=== PATIENT | female | born 1960 ===

== ENCOUNTER 2023-09-27 11:31 | Day surgery (SDC) | payer BC ==
[~2023-09-27 11:31] MED LIST: Albuterol 0.083% 2.5 MG/3 ML Neb Soln NEB PRN; HYDROmorphone 1 MG/ML Syringe IVPUSH PRN; Metoclopramide 10 MG/2 ML SDV IVPUSH PRN; Morphine 2 MG/ML SYRINGE IVPUSH PRN; Naloxone 0.4 MG/ML SDV IVPUSH PRN; Ondansetron 4 MG/2 ML SDV IVPUSH PRN; droPERidol 5 MG/2 ML SDV IVPUSH PRN; fentaNYL 50 MCG/ML SDV IVPUSH PRN
[2023-09-27] MEDS ORDERED: propofoL 50 ML ONE (11:38)
[2023-09-27] MEDS ORDERED: Propofol 200 MG/20 ML SDV ONE (11:38)
[2023-09-27] MEDS ORDERED: fentaNYL 100 MCG/2 ML SDV ONE (11:38)
[2023-09-27] MEDS ORDERED: Ondansetron 4 MG/2 ML SDV ONE (11:45)
[2023-09-27] MEDS ORDERED: Lidocaine 2% 5 ML SDV ONE (11:48)
[2023-09-27] MEDS ORDERED: Ropivacaine 0.5% 5 MG/ML 30 ML SDV ONE (11:48)
[2023-09-27] MEDS ORDERED: Dexamethasone 4 MG/ML 5 ML MDV ONE (11:52)
[2023-09-27] MEDS ORDERED: Lidocaine 1% 5 ML VIAL ONE (11:52)
[2023-09-27] MEDS ORDERED: ceFAZolin 2 GM in Sodium Chloride 0.9% 50 ML IV ONE (12:00)
[2023-09-27] MEDS: Lactated Ringers 1,000 ML IV SCH (12:17)
[2023-09-27] MEDS ORDERED: ceFAZolin 2 GM Vial ONE (12:51)
== END 2023-09-27 14:35 | disposition home or self-care (01) ==
LOC: MW.SDS 11:31
PROVIDERS: ATTEND Orthopaedic Surgery
DX: S52.501A Unspecified fracture of the lower end of right radius, initial encounter for closed fracture (principal); I10 Essential (primary) hypertension; J44.9 Chronic obstructive pulmonary disease, unspecified; E78.5 Hyperlipidemia, unspecified; F17.210 Nicotine dependence, cigarettes, uncomplicated; Z79.82 Long term (current) use of aspirin; Z79.899 Other long term (current) drug therapy; X58.XXXA Exposure to other specified factors, initial encounter
CPT/HCPCS: 25606; 64415; 76000; J0131; J0690; J1100; J2405; J2704; J2795; J3010; J7120; 01820; J3490